=== PATIENT | female | born 1995 | race American Indian/Alaskan Native ===

== ENCOUNTER 2019-12-17 21:16 | Emergency (ER) | payer SELFPAY ==
[2019-12-17 21:53] VITALS: BP 121/81
== END 2019-12-17 22:10 | disposition left against medical advice (07) ==
LOC: ED 21:16
DX: Z53.21 Procedure and treatment not carried out due to patient leaving prior to being seen by health care provider (principal)

== ENCOUNTER 2020-01-01 10:46 | Emergency (ER) | payer SELFPAY ==
[2020-01-01 10:53] VITALS: BP 132/92
--- NOTE | 2020-01-01 11:34 | Emergency Department Report ---
Chief Complaint: Abdominal Pain Stated Complaint: ABD PAIN Time Seen by Provider: 01/01/20 11:28 - HPI History of Present Illness: This is a 24-year-old healthy female with no medical history presents the ED complaining of discomfort that she has been feeling right lateral rib side x4 days. Patient states that she is not really having abdominal pain or any pain states is just a discomfort. She denies any trauma or injuries. patient states she is been under a lot of stress lately and is just trying to make sure everything is okay. Patient also requesting a STD screen. Patient denies any fever, chills, nausea, vomiting, diarrhea, dysuria, vaginal bleeding, abdominal pain, chest pain, shortness of breath, recent travel or sick contact. Last menstrual. Was 12/07/2019 - ROS Review of Systems: As noted in HPI - Exam Vital Signs: Vital Signs 01/01/20 10:50 Temperature 98.0 F Pulse Rate 80 Respiratory 20 Rate Blood Pressure 132/92 O2 Sat by Pulse 99 Oximetry Physical Exam: GENERAL: Alert and oriented x3, no apparent distress, Normal Gait, atraumatic. HEAD: Head is normocephalic and a-traumatic. ABDOMEN: No organomegaly was noted,Positive bowel sounds, soft, and non- distended. . Nontender to palpation on all Quadrants, NO CVA tenderness. BACK: Full range of motion, no spinal tenderness, nontender to palpation. SKIN: Warm and dry, No lesions, No ulceration or induration present. MSE screening note: Focused history and physical exam performed. Due to findings the following was ordered: ED Medical Decision Making - Medical Decision Making 24-year-old female presents for STD screening. Patient had no symptoms at all. Patient referred to Dr. gavin here as well as health department and other clinics for STD screening. Patient is in no acute distress patient understand instructions and will follow- up. ED Disposition for MSE Clinical Impression: Screen for STD (sexually transmitted disease) Disposition: MED SCREENING EXAM-LEFT Is pt being admited?: No Does the pt Need Aspirin: No Condition: Stable Instructions: Abdominal Pain (ED) Additional Instructions: Make sure to follow up with the primary care physician as discussed. If you have any worsening symptoms or develop new symptoms please return to ED immediately. Referrals: PRIMARY CAREMD [Primary Care Provider] - 3-5 Days SAMANTA MENDIETA MD [Staff Physician] - 3-[address] [facility] [Outside] - 3-5 Days [facility] [Outside] - 3-5 Days [facility] [Outside] - 3-5 Days [facility] [Provider Group] - 3-5 Days Forms: Work/School Release Form(ED) Time of Disposition: 11:37
== END 2020-01-01 11:55 | disposition left against medical advice (07) ==
LOC: ED 10:46
DX: R10.9 Unspecified abdominal pain (principal); Z53.21 Procedure and treatment not carried out due to patient leaving prior to being seen by health care provider

== ENCOUNTER 2020-04-01 20:19 | Emergency (ER) | payer SELFPAY ==
[2020-04-01 20:56] VITALS: BP 127/84
[2020-04-01] MEDS ORDERED: LIDOCAINE-MPF (1%) 10 MG/1 ML VIAL 5 ML INFILTRATI ONE (22:53)
[2020-04-01] MEDS ORDERED: AZITHROMYCIN 250 MG TAB PO ONE (22:53)
--- NOTE | 2020-04-01 23:20 | Emergency Department Report ---
ED Female HPI - General Chief complaint: Urogenital-Female Stated complaint: VAGINAL PAIN/POSS CYST Time Seen by Provider: 04/01/20 22:46 Source: patient Mode of arrival: Ambulatory Limitations: No Limitations - History of Present Illness Initial comments: Patient 24-year-old -Azerbaijani female who presents for vaginal discharge brown foul-smelling x1 week. Patient states last sexual contact February 2020. States partner advised her that he had STD. Patient requesting treatment and evaluation for same. Patient denies fevers or chills no nausea or vomiting last menstrual cycle 2 weeks ago. Complaint: vaginal discharge Onset/Timin -: week(s) Severity: moderate Severity scale (0 -10): 4 Quality: burning Consistency: intermittent Improves with: none Worsens with: none Are you Now?: No Last Menstrual Period: 03/16/20 EDC: 12/21/20 - Related Data Previous Rx's Medication Instructions Recorded Last Taken Type metroNIDAZOLE [Flagyl] 500 mg PO BID 7 Days #14 tab 04/01/20 Unknown Rx Allergies Allergy/AdvReac Type Severity Reaction Status Date / Time No Known Allergies Allergy Verified 01/20/20 09:45 ED Review of Systems ROS: Stated complaint: VAGINAL PAIN/POSS CYST Other details as noted in HPI Constitutional: denies: chills, fever Eyes: denies: eye pain, eye discharge, vision change ENT: denies: ear pain, throat pain Respiratory: denies: cough, shortness of breath, wheezing Cardiovascular: denies: chest pain, palpitations Endocrine: no symptoms reported Gastrointestinal: denies: abdominal pain, nausea, diarrhea Genitourinary: denies: urgency, dysuria, discharge Musculoskeletal: denies: back pain, joint swelling, arthralgia Skin: denies: rash, lesions Neurological: denies: headache, weakness, paresthesias Psychiatric: denies: anxiety, depression Hematological/Lymphatic: denies: as per HPI, easy bleeding, easy bruising ED Past Medical Hx - Past Medical History Previous Medical History?: No - Surgical History Past Surgical History?: No - Social History Smoking Status: Never Smoker Substance Use Type: None - Medications Home Medications: Home Medications Medication Instructions Recorded Confirmed Last Taken Type metroNIDAZOLE [Flagyl] 500 mg PO BID 7 Days #14 tab 04/01/20 Unknown Rx ED Physical Exam - General Limitations: No Limitations General appearance: alert, in no apparent distress - Head Head exam: Present: atraumatic, normocephalic - Eye Eye exam: Present: normal appearance - ENT ENT exam: Present: mucous membranes moist - Neck Neck exam: Present: normal inspection - Respiratory Respiratory exam: Present: normal lung sounds bilaterally. Absent: respiratory distress - Cardiovascular Cardiovascular Exam: Present: regular rate, normal rhythm. Absent: systolic murmur, diastolic murmur, rubs, gallop - GI/Abdominal GI/Abdominal exam: Present: soft, normal bowel sounds. Absent: distended, tenderness, guarding, rebound, rigid, bruit, hernia - Rectal Rectal exam: Present: deferred - External exam: Absent: erythema, swelling, lesions, lacerations, ecchymosis, bleeding Speculum exam: Present: erythema, vaginal discharge (brown malodorous). Absent: cervical discharge, vaginal bleeding, foreign body, tissue, laceration Bi-manual exam: Absent: cervical motion tendernes - Extremities Exam Extremities exam: Present: normal inspection, normal capillary refill - Back Exam Back exam: Present: normal inspection, full ROM. Absent: tenderness, CVA tenderness (R), CVA tenderness (L) - Neurological Exam Neurological exam: Present: alert, oriented X3, normal gait - Psychiatric Psychiatric exam: Present: normal affect, normal mood - Skin Skin exam: Present: warm, dry, intact, normal color. Absent: rash ED Course Vital Signs 04/01/20 20:52 Temperature 98.0 F Pulse Rate 77 Respiratory 16 Rate Blood Pressure 127/84 O2 Sat by Pulse 100 Oximetry ED Medical Decision Making - Medical Decision Making Wet prep no clues , no trich, GC/Ch culture pending, pt tx'd for sTI is, plan:dc to home with rx for Flagyl Critical care attestation.: If time is entered above; I have spent that time in minutes in the direct care of this critically ill patient, excluding procedure time. ED Disposition Clinical Impression: Exposure to STD Disposition: DC-01 TO HOME OR SELFCARE Is pt being admited?: No Does the pt Need Aspirin: No Condition: Stable Instructions: Sexually Transmitted Diseases (ED) Prescriptions: metroNIDAZOLE [Flagyl] 500 mg PO BID 7 Days #14 tab Referrals: CHONG BARILLAS MD [Staff Physician] - 3-5 Days Forms: Work/School Release Form(ED) Time of Disposition: 23:31
[2020-04-01 23:39] LABS: Bilirubin,Urine NEG (Negative); Blood,Urine NEG (Negative); Color,Urine Straw (Yellow); Mucus,Urine FEW /HPF; Protein,Urine <15 mg/dL mg/dL (Negative); Urobilinogen,Urine < 2.0 mg/dL (<2.0)
[2020-04-01 23:49] LABS: HCG Qualitative,Urine Negative (Negative)
== END 2020-04-01 23:55 | disposition home or self-care (01) ==
LOC: ED 20:19
DX: N89.8 Other specified noninflammatory disorders of vagina (principal); Z20.2 Contact with and (suspected) exposure to infections with a predominantly sexual mode of transmission; Z79.899 Other long term (current) drug therapy
CPT/HCPCS: 81001; 81025; 87210; 87591; 96372; 99284; J0696

== ENCOUNTER 2020-06-24 10:26 | Emergency (ER) | payer SELFPAY ==
[2020-06-24 10:39] VITALS: BP 156/102
--- NOTE | 2020-06-24 11:54 | Emergency Department Report ---
Chief Complaint: Skin Rash Stated Complaint: VAGINAL DISCHARGE/BODY RASH Time Seen by Provider: 06/24/20 11:47 - HPI History of Present Illness: Patient is a 24-year-old female presents emergency room with complaints of a diffuse skin rash that began in April 2020. She states that a couple of months ago she went to visit her sister in [place] and she states that she was using her eczema ointments and states that the rash improved. She states that since she has been back in [place] she has not been using anything for her eczema and she believes that it is flaring. She states that it is very itchy and irritating. She denies any new soaps, lotions, detergents, anything new she can think of. She denies any fever, drainage, vomiting, diarrhea, chills. No past medical history. No allergies to medications. Vitals are stable On exam: Non toxic appearing, no acute distress atraumatic, normocephalic normal appearance of the eyes, EOMI, no periorbital edema or ecchymosis moist mucus membranes No respiratory distress, no accessory muscle use A&O x4, no focal neuro deficit skin is warm, dry, multiple areas of dry skin and hyperpigmentation, no blistering, no erythema, no drainage, no crusting, no skin denuding, no edema Examination appears consistent with eczema No signs of secondary bacterial infection, no cellulitis Discussed supportive care and symptomatic treatment with patient Patient will be referred to primary care doctor and dance critic Discussed strict return precautions with patient Medical screening examination performed and there is no threat to life or limb at this time - Exam Vital Signs: Vital Signs 06/24/20 10:34 Temperature 97.8 F Pulse Rate 88 Respiratory 19 Rate Blood Pressure 156/102 O2 Sat by Pulse 98 Oximetry MSE screening note: Focused history and physical exam performed. ED Disposition for MSE Clinical Impression: Rash Disposition: Z-07 MED SCREENING EXAM-LEFT Is pt being admited?: No Does the pt Need Aspirin: No Condition: Stable Instructions: Eczema Additional Instructions: Please use [id number]-aodlisi hydrocortisone ointment. Please use an iame-hzn-qrkjqog emollient (such as aqauphor, eucerin, cerave). follow up with a primary care doctor and dermatolgist. return to the emergency room for any new or worsening symptoms. clinic: [facility] Address: [address] [place] [address] [place] [address] dermatolgist: [facility] Address: [address] [place] [address] Referrals: SAMANTA MENDIETA MD [Staff Physician] - 2-3 Days [facility] [Provider Group] - 2-3 Days [facility], [LAB[facility]CONTRACT] - 2-3 Days Time of Disposition: 11:50 Print Language: SOLOM[place] ISLANDER
== END 2020-06-24 12:00 | disposition left against medical advice (07) ==
LOC: ED 10:26
DX: N89.8 Other specified noninflammatory disorders of vagina (principal); Z53.21 Procedure and treatment not carried out due to patient leaving prior to being seen by health care provider

== ENCOUNTER 2020-07-19 20:31 | Emergency (ER) | payer SELFPAY ==
[2020-07-19 21:11] VITALS: BP 117/71
--- NOTE | 2020-07-19 21:43 | Event Note ---
ED Screening Note Date of service: 07/19/20 Time: 21:42 ED Screening Note: 24-year-old -Guatemalan female presents to the emergency room stating that she has some vaginal discharge and it sheridan when she urinates. She also complains of her eczema flaring up since April and has not followed up with a primary care provider. She states that she recently made an appointment but she cannot be seen until mid July. This initial assessment/diagnostic orders/clinical plan/treatment(s) is/are subject to change based on patients health status, clinical progression and re- assessment by fellow clinical providers in the ED. Further treatment and workup at subsequent clinical providers discretion. Patient/guardian urged not to elope from the ED as their condition may be serious if not clinically assessed and managed. Initial orders include:
[2020-07-19 23:00] LABS: Bilirubin,Urine NEG (Negative); Blood,Urine NEG (Negative); Color,Urine Yellow (Yellow); Mucus,Urine FEW /HPF; Protein,Urine <15 mg/dL mg/dL (Negative)
--- NOTE | 2020-07-19 23:42 | Emergency Department Report ---
ED General Adult HPI - General Chief complaint: Skin Rash Stated complaint: BODY RASH/VAGINAL DISCHARGE/PAINFUL URINATION Source: patient Mode of arrival: Ambulatory Limitations: No Limitations - History of Present Illness Initial comments: 24-year-old -[place] female presents to the emergency room stating that she has some vaginal discharge and it sheridan when she urinates. She also complains of her eczema flaring up since April and has not followed up with a primary care provider. She states that she recently made an appointment but she cannot be seen until mid July. Onset/Timin -: days(s) Severity scale (0 -10): 2 Consistency: intermittent Improves with: medication (Eczema medication) Worsens with: other (Scratching) Associated Symptoms: other (Dysuria). denies: fever/chills, headaches, loss of appetite Treatments Prior to Arrival: none - Related Data Previous Rx's Medication Instructions Recorded Last Taken Type metroNIDAZOLE [Flagyl] 500 mg PO BID 7 Days #14 tab 04/01/20 Unknown Rx Triamcinolone Acetonide 1 applic TP BID PRN #15 cream..g. 07/19/20 Unknown Rx Allergies Allergy/AdvReac Type Severity Reaction Status Date / Time No Known Allergies Allergy Verified 06/24/20 10:33 ED Review of Systems ROS: Stated complaint: BODY RASH/VAGINAL DISCHARGE/PAINFUL URINATION Other details as noted in HPI Comment: All other systems reviewed and negative ED Past Medical Hx - Past Medical History Previous Medical History?: No - Surgical History Past Surgical History?: Yes Additional Surgical History: wisdom teeth - Social History Smoking Status: Never Smoker Substance Use Type: None - Medications Home Medications: Home Medications Medication Instructions Recorded Confirmed Last Taken Type metroNIDAZOLE [Flagyl] 500 mg PO BID 7 Days #14 tab 04/01/20 Unknown Rx Triamcinolone Acetonide 1 applic TP BID PRN #15 cream..g. 07/19/20 Unknown Rx ED Physical Exam - General Limitations: No Limitations General appearance: alert, in no apparent distress - Head Head exam: Present: atraumatic, normocephalic - Eye Eye exam: Present: normal appearance - ENT ENT exam: Present: mucous membranes moist - Neck Neck exam: Present: normal inspection - Respiratory Respiratory exam: Present: normal lung sounds bilaterally. Absent: respiratory distress - Cardiovascular Cardiovascular Exam: Present: regular rate, normal rhythm. Absent: systolic murmur, diastolic murmur, rubs, gallop - GI/Abdominal GI/Abdominal exam: Present: soft. Absent: distended, tenderness - Back Exam Back exam: Present: normal inspection, full ROM - Neurological Exam Neurological exam: Present: alert, oriented X3, normal gait - Psychiatric Psychiatric exam: Present: normal affect, normal mood - Skin Skin exam: Present: other - Expanded Skin Exam Expanded Distribution of rash: RUE (Extensor), LUE Description of rash: Present: macular, other (Hyperpigmented dry patchy) ED Course Vital Signs 07/19/20 21:09 Temperature 97.8 F Pulse Rate 75 Respiratory 17 Rate Blood Pressure 117/71 O2 Sat by Pulse 99 Oximetry ED Medical Decision Making - Medical Decision Making 24-year-old -[place] female presents to the emergency room stating that she has some vaginal discharge and it sheridan when she urinates. She also complains of her eczema flaring up since April and has not followed up with a primary care provider. She states that she recently made an appointment but she cannot be seen until mid July. Urinalysis negative for any infection Patient given a prescription for triamcinolone cream. Referral to dermatology and primary care Critical care attestation.: If time is entered above; I have spent that time in minutes in the direct care of this critically ill patient, excluding procedure time. ED Disposition Clinical Impression: Atopic dermatitis, Dysuria Disposition: - TO HOME OR SELFCARE Is pt being admited?: No Does the pt Need Aspirin: No Condition: Stable Instructions: Atopic Dermatitis Additional Instructions: Use cream to rash as prescribed. Prescriptions: Triamcinolone Acetonide 1 applic TP BID PRN #15 cream..g. PRN Reason: Rash Referrals: [facility] [Provider Group] - 3-5 Days Forms: Work/School Release Form(ED)
== END 2020-07-20 00:24 | disposition home or self-care (01) ==
LOC: ED 20:31
DX: L20.9 Atopic dermatitis, unspecified (principal); R30.0 Dysuria; Z79.899 Other long term (current) drug therapy
CPT/HCPCS: 81001; 99283

== ENCOUNTER 2020-11-25 09:53 | Emergency (ER) | payer MEDICAID ==
[2020-11-25 10:00] VITALS: BP 138/77
--- NOTE | 2020-11-25 10:54 | Emergency Department Report ---
Chief Complaint: Extremity Problem,Nontraumatic Stated Complaint: RT LEG PAINS Time Seen by Provider: 11/25/20 10:53 - HPI History of Present Illness: 25-year-old -Montenegrin female presents to the emergency room for 1 day history of nontraumatic right leg pain. 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 Patient is taking nothing for her pain. Patient is requesting a work excuse. - Exam Vital Signs: Vital Signs 11/25/20 09:55 Temperature 98 F Pulse Rate 64 Respiratory 16 Rate Blood Pressure 138/77 O2 Sat by Pulse 100 Oximetry Physical Exam: Alert and oriented x3 no acute distress nontoxic in appearance No respiratory distress no accessory muscles use Neck full range of motion Regular rate Right extremity full range of motion mild tenderness at the hip joint no swelling appreciated Ambulatory without difficulties MSE screening note: Focused history and physical exam performed. Due to findings the following was ordered: 25-year-old -[place]enegr[place] female presents to the emergency room for 1 day history of nontraumatic right leg pain. 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 Patient is taking nothing for her pain. Patient is requesting a work excuse. Recommend ibuprofen or Tylenol. Follow-up with a primary care provider. Patient's been referred to [facility]. Work excuse given for 1 day. ED Disposition for MSE Disposition: MED SCREENING EXAM-LEFT Is pt being admited?: No Does the pt Need Aspirin: No Condition: Stable Additional Instructions: Recommend to take Ibuprofen 600mg every 6-8 hours. Follow up with a Primary Care Provider. Referrals: PRIMARY CARE [Primary Care Provider] - 3-5 Days [facility] [Provider Group] - 3-5 Days Forms: Work/School Release Form(ED)
== END 2020-11-25 13:09 | disposition left against medical advice (07) ==
LOC: ED 09:53
DX: M79.604 Pain in right leg (principal); Z53.21 Procedure and treatment not carried out due to patient leaving prior to being seen by health care provider

== ENCOUNTER 2021-05-12 12:03 | Emergency (ER) | payer MEDICAID ==
[2021-05-12 12:35] VITALS: BP 131/86
--- NOTE | 2021-05-12 12:59 | XRay Report ---
CHEST PA AND LATERAL VIEWS INDICATION: chest tightness. COMPARISON: 01/20/2020 FINDINGS: Support devices: None. Heart: Within normal limits. Lungs/Pleura: No acute pulmonary or pleural findings. IMPRESSION: 1. No acute findings. Signer Name: Mark Lema MD Signed: 05/12/2021 12:55 PM Workstation Name: [id number]
--- NOTE | 2021-05-12 13:22 | Emergency Department Report ---
ED General Adult HPI - General Chief complaint: Chest Pain Stated complaint: LIGHT HEADED/CHEST PAIN/VIRIDIANA Time Seen by Provider: 05/12/21 12:33 Source: patient Mode of arrival: Ambulatory Limitations: No Limitations - History of Present Illness Initial comments: Patient is a 25-year-old F Martiniquais female who is presenting with some chest discomfort. She states she started having some sinus discomfort with some postnasal drip starting yesterday. Feels a little bit of tightness in her chest. Denies any actual cough fevers or chills. Denies body aches. Patient was not immunized for COVID-19. - Related Data Previous Rx's Medication Instructions Recorded Last Taken Type metroNIDAZOLE [Flagyl] 500 mg PO BID 7 Days #14 tab 04/01/20 Unknown Rx Triamcinolone Acetonide 1 applic TP BID PRN #15 cream..g. 07/19/20 Unknown Rx Albuterol Mdi (or & Nicu Only) 2 puff IH QID PRN #1 inhalation 05/12/21 Unknown Rx [ProAir HFA Inhaler] predniSONE [Deltasone] 50 mg PO QDAY #5 tab 05/12/21 Unknown Rx Allergies Allergy/AdvReac Type Severity Reaction Status Date / Time No Known Allergies Allergy Verified 06/24/20 10:33 ED Review of Systems ROS: Stated complaint: LIGHT HEADED/CHEST PAIN/VIRIDIANA Other details as noted in HPI Comment: All other systems reviewed and negative ED Past Medical Hx - Past Medical History Previous Medical History?: No - Surgical History Past Surgical History?: Yes Additional Surgical History: wisdom teeth - Social History Smoking Status: Never Smoker Substance Use Type: None - Medications Home Medications: Home Medications Medication Instructions Recorded Confirmed Last Taken Type metroNIDAZOLE [Flagyl] 500 mg PO BID 7 Days #14 tab 04/01/20 Unknown Rx Triamcinolone Acetonide 1 applic TP BID PRN #15 cream..g. 07/19/20 Unknown Rx Albuterol Mdi (or & Nicu Only) 2 puff IH QID PRN #1 inhalation 05/12/21 Unknown Rx [ProAir HFA Inhaler] predniSONE [Deltasone] 50 mg PO QDAY #5 tab 05/12/21 Unknown Rx ED Physical Exam - General Limitations: No Limitations General appearance: alert, in no apparent distress - Head Head exam: Present: atraumatic, normocephalic - Eye Eye exam: Present: normal appearance - ENT ENT exam: Present: mucous membranes moist - Neck Neck exam: Present: normal inspection - Respiratory Respiratory exam: Present: normal lung sounds bilaterally. Absent: respiratory distress, wheezes, rales, rhonchi - Cardiovascular Cardiovascular Exam: Present: regular rate, normal rhythm, normal heart sounds. Absent: systolic murmur, diastolic murmur, rubs, gallop - GI/Abdominal GI/Abdominal exam: Present: soft, normal bowel sounds. Absent: distended, tenderness, guarding, rebound - Extremities Exam Extremities exam: Present: normal inspection - Back Exam Back exam: Present: normal inspection - Neurological Exam Neurological exam: Present: alert, oriented X3 - Psychiatric Psychiatric exam: Present: normal affect, normal mood - Skin Skin exam: Present: warm, dry, intact, normal color. Absent: rash ED Course Vital Signs 05/12/21 12:33 Temperature 98.1 F Pulse Rate 79 Respiratory 18 Rate Blood Pressure 131/86 [Left] O2 Sat by Pulse 100 Oximetry ED Medical Decision Making - EKG Data -: EKG Interpreted by Ca - EKG Data 05/12/21 13:23 EKG shows a sinus rhythm with a rate of 57. Normal axis normal intervals no ST segment elevation or depressions. Time of interpretation 1318. - Radiology Data [facility] [address] [place] [address] XRay Report Signed Patient: ISSA MAJOR R#: [id number] : 1995 Acct:[id number] Age/Sex: 25 / F ADM Date: 05/12/21 Loc: ED Attending Dr: Ordering Physician: MARK BULLOCK MD Date of Service: 05/12/21 Procedure(s): XR chest routine 2V Accession Number(s): [id number] cc: MARK BULLOCK MD Fluoro Time In Minutes: CHEST PA AND LATERAL VIEWS INDICATION: chest tightness. COMPARISON: 01/20/2020 FINDINGS: Support devices: None. Heart: Within normal limits. Lungs/Pleura: No acute pulmonary or pleural findings. IMPRESSION: 1. No acute findings. Signer Name: Mark Lema MD Signed: 05/12/2021 12:55 PM Workstation Name: [email or web address] - Medical Decision Making Patient is a 25-year-old F Martiniquais female's presenting with chest discomfort. EKG and chest x-ray are within normal limits. Patient states she does have some postnasal drip will be started on a short course of steroids. Patient likely early acute bronchitis. Patient discharged home. Critical care attestation.: If time is entered above; I have spent that time in minutes in the direct care of this critically ill patient, excluding procedure time. ED Disposition Clinical Impression: Acute bronchitis Qualifiers: Bronchitis organism: unspecified organism Qualified Code(s): J20.9 - Acute bronchitis, unspecified Disposition: 01 HOME / SELF CARE / HOMELESS Is pt being admited?: No Does the pt Need Aspirin: No Condition: Stable Instructions: Acute Bronchitis (ED), Acute Bronchitis, Adult Referrals: KEN JOLLEY MD [Referring] - 3-5 Days Time of Disposition: 13:24
--- NOTE | 2021-05-13 14:12 | Electrocardiograph Report ---
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
== END 2021-05-12 14:29 | disposition home or self-care (01) ==
LOC: ED 12:03
DX: J20.9 Acute bronchitis, unspecified (principal)
CPT/HCPCS: 71046; 93005; 99283

== ENCOUNTER 2021-07-12 13:49 | Emergency (ER) | payer SELFPAY ==
[2021-07-12 14:38] VITALS: BP 155/85
[2021-07-12] MEDS ORDERED: KETOROLAC 60 MG/2 ML INJ IM ONE (17:04)
[2021-07-12] MEDS ORDERED: dexAMETHasone 20 MG/5 ML VIAL IM ONE (17:04)
--- NOTE | 2021-07-12 17:09 | Emergency Department Report ---
- General Chief Complaint: Medical Clearance Stated Complaint: COVID POSITIVE Time Seen by Provider: 07/12/21 16:27 Source: patient Mode of arrival: Ambulatory Limitations: No Limitations - History of Present Illness Initial Comments: 25-year-old female denies any significant past medical history presents to the ER today with complaints of Covid-like symptoms. Patient states that she has been having body aches, and started with fever last night of 100.9. She also has a mild cough since last night. She states that she had a COVID-19 test today at urgent care and it was positive. She states that she was sent here by the urgent care because she feels like she is dehydrated, mouth was dry, urgent care recommend that she comes to get IV fluids. She has not had any vomiting or diarrhea. She reports no chest pain, shortness of breath, rhinorrhea, nasal congestion abdominal pain, UTI symptoms or any additional symptoms. She denies any EtOH abuse, smoking, recent travel or known ill contacts. MD Complaint: fever, cough (And has body aches), other -: Last night - Related Data Previous Rx's Medication Instructions Recorded Last Taken Type metroNIDAZOLE [Flagyl] 500 mg PO BID 7 Days #14 tab 04/01/20 Unknown Rx Triamcinolone Acetonide 1 applic TP BID PRN #15 cream..g. 07/19/20 Unknown Rx Albuterol Mdi (or & Nicu Only) 2 puff IH QID PRN #1 inhalation 05/12/21 Unknown Rx [ProAir HFA Inhaler] predniSONE [Deltasone] 50 mg PO QDAY #5 tab 05/12/21 Unknown Rx Ibuprofen [Motrin] 600 mg PO Q8H PRN #30 tablet 07/12/21 Unknown Rx methOCARBAMOL [Robaxin TAB] 500 mg PO Q6H PRN #30 tablet 07/12/21 Unknown Rx Allergies Allergy/AdvReac Type Severity Reaction Status Date / Time No Known Allergies Allergy Verified 06/24/20 10:33 ED Review of Systems ROS: Stated complaint: COVID POSITIVE Other details as noted in HPI Comment: All other systems reviewed and negative Constitutional: fever ENT: denies: throat pain, hearing loss, epistaxis, congestion Respiratory: cough (Mild). denies: shortness of breath, SOB with exertion, SOB at rest Cardiovascular: denies: chest pain, palpitations, dyspnea on exertion, edema, syncope, paroxysmal nocturnal dyspnea Endocrine: no symptoms reported Gastrointestinal: denies: abdominal pain, nausea, vomiting, diarrhea, constipation, hematemesis, hematochezia Genitourinary: denies: frequency, hematuria, discharge, abnormal menses, dyspareunia Musculoskeletal: myalgia Skin: denies: rash, lesions, change in color, change in hair/nails, pruritus Neurological: weakness. denies: headache, numbness, paresthesias, confusion, abnormal gait, vertigo Psychiatric: as per HPI. denies: auditory hallucinations, visual hallucinations, homicidal thoughts, suicidal thoughts Hematological/Lymphatic: denies: easy bleeding, easy bruising, swollen glands ED Past Medical Hx - Surgical History Additional Surgical History: wisdom teeth - Social History Smoking Status: Never Smoker Substance Use Type: None - Medications Home Medications: Home Medications Medication Instructions Recorded Confirmed Last Taken Type metroNIDAZOLE [Flagyl] 500 mg PO BID 7 Days #14 tab 04/01/20 Unknown Rx Triamcinolone Acetonide 1 applic TP BID PRN #15 cream..g. 07/19/20 Unknown Rx Albuterol Mdi (or & Nicu Only) 2 puff IH QID PRN #1 inhalation 05/12/21 Unknown Rx [ProAir HFA Inhaler] predniSONE [Deltasone] 50 mg PO QDAY #5 tab 05/12/21 Unknown Rx Ibuprofen [Motrin] 600 mg PO Q8H PRN #30 tablet 07/12/21 Unknown Rx methOCARBAMOL [Robaxin TAB] 500 mg PO Q6H PRN #30 tablet 07/12/21 Unknown Rx ED Physical Exam - General Limitations: No Limitations General appearance: alert, in no apparent distress, other (Mildly ill-appearing but nontoxic) - Head Head exam: Present: atraumatic, normocephalic, normal inspection - Eye Eye exam: Present: normal appearance, PERRL, EOMI Pupils: Present: normal accommodation - ENT ENT exam: Present: normal exam, mucous membranes moist - Neck Neck exam: Present: normal inspection, full ROM. Absent: meningismus - Respiratory Respiratory exam: Present: normal lung sounds bilaterally. Absent: respiratory distress, wheezes, rales, rhonchi, stridor - Cardiovascular Cardiovascular Exam: Present: regular rate, normal rhythm, normal heart sounds - GI/Abdominal GI/Abdominal exam: Present: soft. Absent: distended, tenderness, guarding, rebound - Neurological Exam Neurological exam: Present: alert, oriented X3, CN II-XII intact, normal gait - Psychiatric Psychiatric exam: Present: normal affect, normal mood - Skin Skin exam: Present: intact ED Course Vital Signs 07/12/21 07/12/21 14:37 18:04 Temperature 99.7 F H Pulse Rate 115 H 101 H Respiratory 18 Rate Blood Pressure 155/85 O2 Sat by Pulse 96 Oximetry ED Medical Decision Making - Medical Decision Making 25-year-old female denies any significant past medical history presents to the ER today with complaints of Covid-like symptoms. Patient states that she has been having body aches, and started with fever last night of 100.9. She also has a mild cough since last night. She states that she had a COVID-19 test today at urgent care and it was positive. She states that she was sent here by the urgent care because she feels like she is dehydrated, mouth was dry, urgent care recommend that she comes to get IV fluids. She has not had any vomiting or diarrhea. She reports no chest pain, shortness of breath, rhinorrhea, nasal congestion abdominal pain, UTI symptoms or any additional symptoms. She denies any EtOH abuse, smoking, recent travel or known ill contacts. 1746: Patient appears hydrated, she is not severely ill-appearing and she is not toxic. She is awake alert and oriented x3, she is neurologically intact with a normal gait. No meningeal signs on exam. Chest clear to auscultation. Abdomen soft and nontender. Patient appears hemodynamically stable. I do not suspect sepsis at this time. Patient vital signs show that she is mildly tacky with a heart rate of 111 and she has a low-grade temp of 99, this is likely related to her Covid-19 illness. I do not see indication for IV fluids, especially since she is tolerating p.o. and is not having any vomiting or diarrheaand she has no apparent signs of dehydration on exam there is no indication for any additional work-up at this time.. Patient will be given medication to help her symptoms and to help her fevers. She was encouraged to drink lots of fluids. Quarantine at home for 5 days and follow-up with her PCP. She understands to return to the ER if her symptoms worse. Patient was stable at time of discharge. Critical care attestation.: If time is entered above; I have spent that time in minutes in the direct care of this critically ill patient, excluding procedure time. ED Disposition Clinical Impression: COVID-19 virus infection Disposition: HOME / SELF CARE / HOMELESS Is pt being admited?: No Does the pt Need Aspirin: No Condition: Stable Instructions: COVID-19: How to Protect Yourself and Others - [facility] Additional Instructions: I recommend that you drink lots of fluids at home. Take the ibuprofen as prescribed to help with any pain and you can alternate with Tylenol to help with pain and fever. You can take [id number] cough cold medications to help with symptoms. Recommend quarantine at home for 5 days per the new CDC guidelines. Protect yourself and others by wearing a mask at all times. Lots of handwashing. Take a multivitamin Prescriptions: Ibuprofen [Motrin] 600 mg PO Q8H PRN #30 tablet PRN Reason: Pain methOCARBAMOL [Robaxin TAB] 500 mg PO Q6H PRN #30 tablet PRN Reason: pain Referrals: SAMANTA MENDIETA MD [Staff Physician] - 3-5 Days Forms: Work/School Release Form(ED) Time of Disposition: 17:22
== END 2021-07-12 18:04 | disposition home or self-care (01) ==
LOC: ED 13:49
DX: U07.1 COVID-19 (principal)
CPT/HCPCS: 96372; 99282; J1100; J1885